=== PATIENT | male | born 1995 | race Caucasian/White ===

== ENCOUNTER 2021-07-03 13:30 | Emergency (ER) | payer OTHER ==
[~2021-07-03 13:30] MED LIST: BACTRIM DS TAB1 EACH PO; BACTROBAN NASAL1 G1 TOP; IBUPROFEN600 MG PO
[2021-07-03] MEDS ORDERED: HYDROCODON-ACE1 EAC4 PO (14:46)
== END 2021-07-03 15:04 | disposition home or self-care (01) ==
LOC: ER1 13:30
DX: S62.346A Nondisplaced fracture of base of fifth metacarpal bone, right hand, initial encounter for closed fracture (principal); F17.200 Nicotine dependence, unspecified, uncomplicated; W22.01XA Walked into wall, initial encounter; Y92.009 Unspecified place in unspecified non-institutional (private) residence as the place of occurrence of the external cause
CPT/HCPCS: 29125; 73130; 99283